=== PATIENT | male | born 1975 | race Caucasian/White ===

== ENCOUNTER → 2023-07-11 12:42 | Outpatient (REF) | payer OTHER, SELFPAY | LOC: HWRCS 12:42 | PROVIDERS: ATTENDING PHYSICIAN Internal Medicine Rheumatology; FAMILY PHYSICIAN Family Medicine | DX: Z86.79 Personal history of other diseases of the circulatory system (principal) | CPT/HCPCS: 93306 ==

== ENCOUNTER 2024-09-16 23:35 | Inpatient (IN) | payer OTHER, SELFPAY ==
[2024-09-16] VITALS (8 sets, daily range): BP systolic 142–180; BP diastolic 86–148
--- NOTE | 2024-09-16 21:20 | ED.GENMED ---
History of Present Illness
<Blanca Arredondo DO, Resident - Last Filed: 09/17/24 00:18>
General
Chief Complaint: Breathing Problem
Source: patient
Time Seen by Provider: 09/16/24 21:03
Nursing documentation reviewed up to this point in time: agreed with
History of Present Illness
History of Present Illness:
Patient is a 48-year-old man with past medical history of eosinophilic granulomatosis, asthma presenting with new onset shortness of breath and wheezing. Patient has followed with rheumatology at [place] with Dr. Sola Riddle for 10+ years for
diagnosis of Churg Oscar. Patient has been on Nucala with good response. Patient has noticed that over the last 3 months he has had to use his inhaler more frequently. Patient woke up yesterday with a sore throat, new chest tightness, and noted
that it was harder to get a good breath. Patient also notes that he is wheezing. His inhaler is not providing symptom relief. Patient presented to the ED today at the encouragement of family.
Past History
<Blanca Arredondo DO, Resident - Last Filed: 09/17/24 00:18>
Past History
ED Past Medical History: Asthma and Other (previous pericarditis and asthma)
ED Past Surgical History: None
Social History
Tobacco: Non-smoker
Alcohol: Occasional
Personal:
Living: with family
Family History
Family History: Other (Father with prostate cancer)
Review of Systems
<Blanca Arredondo DO, Resident - Last Filed: 09/17/24 00:18>
Review of Systems
Allergies reviewed?: Yes
All Other Systems: ROS reviewed and negative except as documented in HPI and ROS
Constitutional: Reports no symptoms
EENT: Reports no symptoms
Respiratory: Reports trouble breathing
Cardiac: Reports no symptoms
ABD/GI: Reports no symptoms
: Reports no symptoms
Musculoskeletal: Reports no symptoms
Skin: Reports no symptoms
Neurological: Reports no symptoms
Endocrine: Reports no symptoms
Hematologic/Lymphatic: Reports no symptoms
Psychiatric: Reports no symptoms
Phy Exam
<Blanca Arredondo DO, Resident - Last Filed: 09/17/24 00:18>
General Physical Exam
General Presentation: moderate distress
General age: appears stated age
General Skin: warm
General Habitus: normal
General Mental: alert
Cardiovascular Exam
Cardiovascular Exam: tachycardia
Heart Sounds: normal
Pulmonary Exam
Pulmonary Exam: respiratory distress
Oxygen Status: oxygen 2 liters via NC
Breath Sounds: Wheeze: right upper and right lower
Gastrointestinal Exam
Gastrointestinal Exam: normal bowel sounds, non tender and soft
Neurological Exam
Neurological Exam: alert and oriented x3
Scores
<River Louis MD - Last Filed: 09/17/24 15:12>
Heart Failure Risk
Heart Failure Risk Score: Not Applicable
Course
<Blanca Arredondo DO, Resident - Last Filed: 09/17/24 00:18>
Orders/Labs/Results
Orders:
Orders
09/16/24 20:49
EKG [Electrocardiogram (*1)] Urgent
Reason for Study: Shortness of Breath
EKG- Treatment ONCE
09/16/24 21:18
Dexamethasone Sod Phosphate [Decadron] 10 mg IV NOW STA
Ipratropium/Albuterol Sulfate [Duoneb] 3 ml INH R NOW STA
CR Chest Portable - 1 View Urgent
Comment:
Reason For Exam: cough/sob
Reason Study Needs to be Portable: Patient Unstable
09/16/24 21:23
Complete Blood Count/With Diff Urgent
Comprehensive Metabolic Panel Urgent
Magnesium Urgent
09/16/24 21:50
Ipratropium/Albuterol Sulfate [Duoneb] 3 ml INH R NOW STA
09/16/24 21:51
0.9% Sodium Chloride 500 ml [Nss] 500 ml IV BOLUS
09/16/24 23:03
D-Dimer Stat
Influenza A+B Rapid Molecular Urgent
LATA Source: Nasal Swab
Specimen Description:
09/16/24 23:05
Admit/Transfer Patient As Directed
Co-Sign Provider:
Level of Care: Inpatient admission
Assign to:: Telemetry
Physician / Group: Eloisa Molina
Diagnosis: asthma exacerbaton
Reason for Telemetry: Arrhythmia
Date to Stop Telemetry: 09/19/24
Time to Stop Telemetry: 11:00
Reason for Hospitalization: asthma exacerbation
Expected length of stay greater than two midnights?: Yes
ELOS- Estimated Length of Stay in days: 3
I certify the patient meets the requirements for IP care: Yes
PRN Pain Medication Management As Directed
May give lesser potent ordered pain med per pt: Yes
preference::
Protocol:: Medication orders for pain may be administered in a
manner that supports deferring to patient preference
when the pt is:
- Requesting an ordered lesser potent pain medication.
Least to most potent pain medications are defined
as: acetaminophen < NSAID < tramadol < opioids
(morphine, oxycodone, hydromorphone).
- Requesting a lesser dose of the same medication IF
ORDERED.
- Requesting a less intrusive route of administration
if both routes are prescribed by the provider (PO <
IV).
09/16/24 23:06
Code Status As Directed
Resuscitation Status: Full Code
COVID-19 Antigen Routine
09/17/24 01:28
Acetaminophen [Tylenol] 650 mg PO Q4HPRN PRN
Ipratropium/Albuterol Sulfate [Duoneb] 3 ml INH R Q4HPRN PRN
09/17/24 01:28
Consult Notification Routine
Specialty to Notify: Pulmonary
Date consulting provider notified: 09/17/24
Time consulting provider notified: 07:35
Notified:: Provider
Comment: MORRIS CHONG
PULMONARY CONSULT Routine
Consulting Provider: Morris Chong
Was physician already notified: No
Reason for consult: asthma exacerbaton
Activity As Directed
Activity Level: As Tolerated
Vital Signs As Directed
Frequency: Per unit guidelines
Weight As Directed
Frequency: Once
Comment: on admission
O2 Therapy [RESP] Routine
Titrate/Wean O2 to maintain O2 sat greater than (%): 93
Pulse Ox/spot Check [RESP] Routine
Quantity: 1
DX Deep Vein Thrombosis Video Routine
09/17/24 06:00
Dexamethasone Sod Phosphate [Decadron] 4 mg IV Q8H
09/17/24 07:00
Basic Metabolic Panel IN AM
09/17/24 08:00
Ipratropium/Albuterol Sulfate [Duoneb] 3 ml INH R QID
09/17/24 Dinner
Regular
At Your Request: Full Participation
09/17/24 18:00
Enoxaparin Sodium [Lovenox] 40 mg SC QPM
09/19/24 11:00
DC Protocol for Telemetry ONCE
Abnormal Lab Results
09/16/24 09/16/24
21:23 23:03
MCH 31.6 H pg
(27.0-31.0)
Absolute Lymphs (auto) 0.9 L 10^3/uL
(1.2-3.4)
Absolute Monos (auto) 0.8 H 10^3/uL
(0.1-0.6)
Neutrophils % 78.2 H %
(42.2-75.2)
Lymphocytes % 10.6 L %
(20.5-51.1)
Monocytes % 9.7 H %
(1.7-9.3)
D-Dimer 0.57 H ug/mlFEU
(0.00-0.50)
Glucose 112 H mg/dl
(70-99)
Albumin 5.2 H g/dl
(3.5-5.0)
09/16/24 21:23
09/16/24 21:23
Vital Signs
Initial and Last Documented VS:
Initial Vital Signs
Temp Pulse BP Pulse Ox
98.2 F 134 180/148 92
09/16/24 20:49 09/16/24 20:49 09/16/24 20:49 09/16/24 20:49
Last Documented Vital Signs
Temp Pulse Resp BP Pulse Ox
98.1 F 105 25 160/94 94
09/17/24 11:10 09/17/24 12:23 09/17/24 12:23 09/17/24 11:10 09/17/24 12:23
<River Louis MD - Last Filed: 09/17/24 15:12>
Orders/Labs/Results
Orders:
Orders
09/16/24 20:49
EKG [Electrocardiogram (*1)] Urgent
Reason for Study: Shortness of Breath
EKG- Treatment ONCE
09/16/24 21:18
Dexamethasone Sod Phosphate [Decadron] 10 mg IV NOW STA
Ipratropium/Albuterol Sulfate [Duoneb] 3 ml INH R NOW STA
CR Chest Portable - 1 View Urgent
Comment:
Reason For Exam: cough/sob
Reason Study Needs to be Portable: Patient Unstable
09/16/24 21:23
Complete Blood Count/With Diff Urgent
Comprehensive Metabolic Panel Urgent
Magnesium Urgent
09/16/24 21:50
Ipratropium/Albuterol Sulfate [Duoneb] 3 ml INH R NOW STA
09/16/24 21:51
0.9% Sodium Chloride 500 ml [Nss] 500 ml IV BOLUS
09/16/24 23:03
D-Dimer Stat
Influenza A+B Rapid Molecular Urgent
LATA Source: Nasal Swab
Specimen Description:
09/16/24 23:05
Admit/Transfer Patient As Directed
Co-Sign Provider:
Level of Care: Inpatient admission
Assign to:: Telemetry
Physician / Group: Eloisa Molina
Diagnosis: asthma exacerbaton
Reason for Telemetry: Arrhythmia
Date to Stop Telemetry: 09/19/24
Time to Stop Telemetry: 11:00
Reason for Hospitalization: asthma exacerbation
Expected length of stay greater than two midnights?: Yes
ELOS- Estimated Length of Stay in days: 3
I certify the patient meets the requirements for IP care: Yes
PRN Pain Medication Management As Directed
May give lesser potent ordered pain med per pt: Yes
preference::
Protocol:: Medication orders for pain may be administered in a
manner that supports deferring to patient preference
when the pt is:
- Requesting an ordered lesser potent pain medication.
Least to most potent pain medications are defined
as: acetaminophen < NSAID < tramadol < opioids
(morphine, oxycodone, hydromorphone).
- Requesting a lesser dose of the same medication IF
ORDERED.
- Requesting a less intrusive route of administration
if both routes are prescribed by the provider (PO <
IV).
09/16/24 23:06
Code Status As Directed
Resuscitation Status: Full Code
COVID-19 Antigen Routine
09/17/24 01:28
Acetaminophen [Tylenol] 650 mg PO Q4HPRN PRN
Ipratropium/Albuterol Sulfate [Duoneb] 3 ml INH R Q4HPRN PRN
09/17/24 01:28
Consult Notification Routine
Specialty to Notify: Pulmonary
Date consulting provider notified: 09/17/24
Time consulting provider notified: 07:35
Notified:: Provider
Comment: MORRIS CHONG
PULMONARY CONSULT Routine
Consulting Provider: Morris Chong
Was physician already notified: No
Reason for consult: asthma exacerbaton
Activity As Directed
Activity Level: As Tolerated
Vital Signs As Directed
Frequency: Per unit guidelines
Weight As Directed
Frequency: Once
Comment: on admission
O2 Therapy [RESP] Routine
Titrate/Wean O2 to maintain O2 sat greater than (%): 93
Pulse Ox/spot Check [RESP] Routine
Quantity: 1
DX Deep Vein Thrombosis Video Routine
09/17/24 06:00
Dexamethasone Sod Phosphate [Decadron] 4 mg IV Q8H
09/17/24 07:00
Basic Metabolic Panel IN AM
09/17/24 08:00
Ipratropium/Albuterol Sulfate [Duoneb] 3 ml INH R QID
09/17/24 Dinner
Regular
At Your Request: Full Participation
09/17/24 18:00
Enoxaparin Sodium [Lovenox] 40 mg SC QPM
09/19/24 11:00
DC Protocol for Telemetry ONCE
Abnormal Lab Results
09/16/24 09/16/24
21:23 23:03
MCH 31.6 H pg
(27.0-31.0)
Absolute Lymphs (auto) 0.9 L 10^3/uL
(1.2-3.4)
Absolute Monos (auto) 0.8 H 10^3/uL
(0.1-0.6)
Neutrophils % 78.2 H %
(42.2-75.2)
Lymphocytes % 10.6 L %
(20.5-51.1)
Monocytes % 9.7 H %
(1.7-9.3)
D-Dimer 0.57 H ug/mlFEU
(0.00-0.50)
Glucose 112 H mg/dl
(70-99)
Albumin 5.2 H g/dl
(3.5-5.0)
09/16/24 21:23
09/16/24 21:23
Vital Signs
Initial and Last Documented VS:
Initial Vital Signs
Temp Pulse BP Pulse Ox
98.2 F 134 180/148 92
09/16/24 20:49 09/16/24 20:49 09/16/24 20:49 09/16/24 20:49
Last Documented Vital Signs
Temp Pulse Resp BP Pulse Ox
98.1 F 105 25 160/94 94
09/17/24 11:10 09/17/24 12:23 09/17/24 12:23 09/17/24 11:10 09/17/24 12:23
<Blanca Arredondo DO, Resident - Last Filed: 09/17/24 00:18>
MDM/Problems Addressed
Differential Diagnosis Includes:
Acute asthma exacerbation, viral respiratory infection
MDM/Problems Addressed:
Chest x-ray given unilateral wheezing, dexamethasone and breathing treatment ordered. Given that patient is hypoxic, tachycardic patient will be admitted tonight.
Chest x-ray shows no acute cardiopulmonary abnormality. Patient's vital signs improving on dexamethasone and breathing treatments however patient is still hypoxic and tachycardic. Will admit patient.
<Blanca Arredondo DO, Resident - Last Filed: 09/17/24 00:18>
*Pulse Oximetry
SaO2: 92
Oxygen Mode of Delivery: Room air
Patient hypoxic: yes
Comment: Patient is hypoxic on presentation, patient on 1.5 L nasal cannula
*Critical Care Note
Total Time (30-74mins, 75-104mins- exclusive of procedures): Not Applicable
ED Attending Note
<Blanca Arredondo DO, Resident - Last Filed: 09/17/24 00:18>
-
Portions of this chart may have been created with voice recognition software.� Occasional wrong word or��sound alike� substitutions may have occurred due to the inherent limitations of voice recognition software.
<River Louis MD - Last Filed: 09/17/24 15:12>
ED Attending Note
Patient seen and examined by attending physician: Yes
ED Attending Note:
Patient with history of asthma, presents to ED secondary to worsening cough, sore throat, nasal congestion, and worsening shortness of breath despite using inhaler over the past 2 days. Denies fever or chills. Denies chest pain. Denies back pain.
Denies leg pain or swelling. Denies recent travel. Patient has had similar symptoms in the past, but not recently. Denies sick contact. Denies recent change in medications or diet. Patient was evaluated urgent care center this afternoon, where
he tested negative for COVID-19 along with negative rapid strep test. Denies loss of appetite. Denies vomiting or diarrhea. Denies headache. Denies neck pain.
Physical Exam
General: moderate respiratory distress, not acutely ill. afebrile
Head: nc/at. eomi
Neck: supple. no jvd. normal range of motion.
Heart: tachycardic without murmur
Lungs: moderate respiratory distress. expiratory wheezing noted, R>L
Abdomen: normal bowel sounds. not tender.
Neuro: alert and oriented x 3. no focal neurological deficits
Skin: no rash
Psychiatric: well kept. interactive and cooperative
Extremities: no edema. no calf tenderness.
Patient reports improvement after treatment, with improved blood pressure and heart rate. Chest x-ray without any acute findings. History and exam concerning for hypoxia, likely secondary to asthma exacerbation, due to nonspecific viral illness.
Doubtful for PE diagnosis at this time. However, to be considered during hospitalization, especially if symptoms do not improve appropriately.
Discharge Plan
Departure
Patient Disposition: Admit
Date of Disposition: 09/16/24
Time of Disposition: 22:12
Presentation/result/management discussed w/ accepting MD/DO: Hospitalist
Discharge Problem:
Asthma
Interventions
Interventions:
*Risk Screen - Suicide Last Done: 09/16/24 20:49
*General Assessment Last Done: 09/16/24 20:49
*Neglect/Abuse Screening Last Done: 09/16/24 20:49
*ED COVID-19 Vaccine History Last Done: 09/17/24 01:27
*Nursing Disposition Last Done: 09/17/24 01:36
ED- Cardiac Assessment Last Done: 09/16/24 21:30
ED- Pulmonary Assessment Last Done: 09/16/24 21:30
Discharge Date and Time
Discharge Date/Time: 09/17/24 01:36
[2024-09-16] MEDS: DUONEB 3 ML INH ×2 (21:25→22:01)
[2024-09-16] MEDS: DECADRON 10 MG IV (21:26)
[2024-09-16 21:32] LABS: Hematocrit 46.6 % (39.0-52.0); Hemoglobin 16.7 g/dL (13.0-18.0); Mean Corp Hgb Conc. 35.8 g/dL (33.0-37.0); Mean Corpuscular Volume 88.3 fL (80.0-94.0); Platelet Count 191 10^3/uL (130-400); Red Cell Dist. Width 12.3 % (11.5-14.5)
[2024-09-16 21:44] LABS: ALT (SGPT) 42 U/L (0-50); AST (SGOT) 29 U/L (17-59); Albumin 5.2 g/dl (3.5-5.0); Alkaline Phosphatase 83 U/L (38-126); Blood Urea Nitrogen 18 mg/dl (9-20); Calcium 9.8 mg/dl (8.4-10.2); Carbon Dioxide 26 mmol/L (22-30); Chloride 105 mmol/L (98-107); Glucose 112 mg/dl (70-99); Magnesium 2.0 mg/dl (1.6-2.3); Potassium 3.7 mmol/L (3.5-5.1); Sodium 140 mmol/L (135-145); Total Protein 7.8 g/dl (6.3-8.2); eGFR > 60.00
[2024-09-16] MEDS: NSS 500 IV (22:01)
--- NOTE | 2024-09-16 22:38 | HPS.HSE ---
Addendum entered and electronically signed by Eloisa Molina MD 09/16/24 23:12:
I saw and examined the patient.
The MANUFACTURING QUALITY ENGINEER or PA's note was reviewed and I agree with the note.
Comment: see my notes for changes
48-year-old with difficulty breathing. Patient swallowed rheumatology and pain for dextrose. On Nucala. He has been using his inhaler more frequently for the past 3 months. Yesterday woke up with sore throat chest tightness and difficulty
breathing. Patient stated that she followed up with [facility] about 2 and half months ago. At that time he informed her that he has been using his inhaler more but the plan was to keep an eye and let her know if this keeps going
on. His last dose of Nucala was September 06. Mild chest tightness which he attributes to more of coughing and muscular pain
Chest x-ray reviewed by me-no acute cardiopulmonary changes
EKG-sinus tachycardia with a rate of 120. Possible left atrial enlargement
Nasal congestion
Cardiovascular system S1-S2 tachycardic
Chest decreased breath sounds no wheezing or rhonchi
No pedal edema no calf tenderness no erythema
No rashes on the skin
# Acute hypoxic respiratory insufficiency.
Acute asthma exacerbation possible
Also has
Patient has been using his inhaler more frequently lately and has been off-and-on short of breath for the past 2 months
On 2 L of O2
[id number]
Check D-dimer
He has a contrast allergy if D-dimer is positive we can treat him with Lovenox tonight and get a VQ scan in the morning.
Discussed with the patient regarding this. No bleeding history
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
IV steroids, nebulizer treatments
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 Follows with Dr.Rennie Riddle . Differential count in morning to check eosinophils.
# History of pericarditis
# Ex-smoker
# DVT prophylaxis-Lovenox
# Full code
Part of this note was created using voice recognition system. Occasional wrong word or��sound alike� substitutions may have inadvertently occurred due to the inherent limitations of voice recognition software. If noted kindly bring it to my
attention for correction.
Original Note:
Family Physician
-
Family Physician: Rajan Garcia
Chief Complaint
-
shortness of breath and wheezing
History of Present Illness
Patient is a 48-year-old male with past medical history significant for asthma who presented to [facility] ED for evaluation of shortness of breath and wheezing. Patient has followed with rheumatology at [place] with Dr. Sola Riddle for 10+ years for
diagnosis of Churg Oscar. Patient has been on Nucala with good response. Patient reports waking yesterday morning with nasal congestion and sore throat. He reports assocaited shortness of breath that has increasingly gotten worse over the past 2
days. Earlier today he was seen in urgent care where he was tested for Covid and Strep and both were negative. He went home and family encouraged him to go to ED for evaluation for increased shortness of breath and wheezing. Patient denies any
fever, chills, chest pain, nausea, vomiting, constipation, diarrhea or urinary symptoms.
Medical History
Past Medical History
Past Medical History: Reports Other
Additional Past Medical History:
Asthma
Eosinophilia
History of pericarditis ,With effusion
Churge Oscar Syndrome
Past Surgical History: Reports None
Social History
Tobacco: Former Smoker (quit 20 years ago )
Alcohol: Occasional (couple times weekly )
Drug: None
Personal:
Living: With Family
Employment: Employed
Family History
Family History: Other (Father: prostate cancer; Mother: Skin cancer )
Allergies / Home Medications
Allergies reflects when Allergies were last updated in [email or web address].
Home Medications with original date entered in [email or web address]
Allergy/Medication List:
Allergies
Allergy/AdvReac Type Severity Reaction Status Date / Time
erythromycin base Allergy NAUSEA/VOMI Verified 06/18/19 15:20
TING
Iodinated Contrast Media Allergy DIFFICULTY Verified 06/18/19 15:20
(Iodinated Contrast- Oral BREATHING,
and IV Dye) HIVES
Home Medications
mepolizumab 100 mg subcutaneous solution (Nucala) 300 mg SC .[id number] 07/18/17
albuterol 90 mcg/actuation aerosol inhaler 180 mcg inhalation Q4HPRN PRN shortness of breath 09/16/24
Review of Systems
-
History Source: Patient
Constitutional: Reports No Symptoms
EENT: Reports No Symptoms
Respiratory: Reports Cough and Trouble Breathing (shortness of breath )
Cardiac: Reports No Symptoms
Abdomen/GI: Reports No Symptoms
: Reports No Symptoms
Musculoskeletal: Reports No Symptoms
Skin: Reports No Symptoms
Neurological: Reports No Symptoms
Endocrine: Reports No Symptoms
Hematologic/Lymphatic: Reports No Symptoms
Psych: Reports No Symptoms
Physical Exam
Vital Signs
Vital Signs
Temp Pulse Resp BP Pulse Ox
98.2 F 107 15 147/89 92
09/16/24 20:49 09/16/24 22:00 09/16/24 22:00 09/16/24 22:00 09/16/24 22:00
Physical Exam
General: Well Developed, Well Nourished and No Apparent Distress
HEENT: NormoCephalic, Moist mucous membranes and Atraumatic
Respiratory: Clear and Other (mild shortness of breath, 2L NC in place for mild hypoxia on room air )
Cardiac: S1/S2, Regular Rhythm and Tachycardia
GI: Soft, Non Tender, Non Distended and Normal Bowel Sounds; No Organomegaly
Rectal: Deferred by Provider
Musculoskeletal: No Clubbing, No Cyanosis and No Edema
Skin: Warm and IV/Catheter Site
Neuro: Awake, AO x 3 and Nonfocal/grossly intact
Psych: Calm and Intact Judgment/Insight
Laboratory Results
-
09/16/24 21:23
09/16/24 21:23
Laboratory Results
Total Bilirubin 1.1 mg/dl (0.2-1.3) 09/16/24 21:23
AST 29 U/L (17-59) 09/16/24 21:23
ALT 42 U/L (0-50) 09/16/24 21:23
Alkaline Phosphatase 83 U/L (38-126) 09/16/24 21:23
Data Reviewed
-
Diagnostic Radiology: Report Reviewed by me (CXR: No acute cardiopulmonary abnormality.)
Lab Data: Labs Reviewed by me
Impression/Plan
-
IMPRESSION/PLAN:
#asthma exacerbation
CXR: No acute cardiopulmonary abnormality.
- Admit to telemetry
- Consult pulmonary
- DuoNeb QID
- IV dexamethasone
- check d-dimer
#Arvind Moore
follows at [place] with Dr. Dot Riddle
- continue to follow up out patient
- continue Nucala out patient
Code status: full code
DVT prophylaxis: Lovenox sq
[2024-09-16 23:30] LABS: COVID-19 Antigen Negative (Negative)
[2024-09-16 23:48] LABS: D-Dimer 0.57 ug/mlFEU (0.00-0.50)
[2024-09-17] VITALS (11 sets, daily range): BP systolic 131–162; BP diastolic 78–108; BMI 29.3
[2024-09-17] MEDS: LOVENOX 90 MG SC (00:28)
[2024-09-17] MEDS: DUONEB 3 ML INH ×6 (02:03→23:53)
--- NOTE | 2024-09-17 02:48 | TRANSFER ---
Pt admitted from ED. Ambulated to bed. Pt on 2L of O2. Oriented to room, call avelar within reach, plan of care ongoing.
[2024-09-17] MEDS: DECADRON 4 MG IV ×3 (06:53→22:19)
[2024-09-17 08:07] LABS: Blood Urea Nitrogen 12 mg/dl (9-20); Calcium 9.3 mg/dl (8.4-10.2); Carbon Dioxide 22 mmol/L (22-30); Chloride 106 mmol/L (98-107); Estimated Creatinine Clearance > 125 ml/min; Glucose 153 mg/dl (70-99); Potassium 4.5 mmol/L (3.5-5.1); Sodium 139 mmol/L (135-145); eGFR > 60.00
--- NOTE | 2024-09-17 08:22 | CON.PUL ---
Consultation
Consultation Request
Date/Time Consultation Requested: 09/17/2024-8 AM
Date/Time Consultation Performed: 09/17/2024-9 AM
Requesting Provider: Hospitalist
Performing Provider: Dr. Lyon
Reason for Consultation: Shortness of breath
Medical History
-
Chief Complaint: Shortness of breath
History of Present Illness:
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 Patton last over 3 years ago presented with mild chest tightness with
coughing and chest congestion-pulmonary consulted for shortness of breath/asthma and Churg-Oscar 09/17/2024. Patient feels improved today. Less shortness of breath. He still has some chest congestion and some chest tightness. He has occasional
wheezing. He states that his asthma is been well-controlled since he has been on Nucala. He has not followed up with pulmonary as he has been well-controlled rarely taking albuterol. He has been on Nucala which has helped him immensely. He is
followed by [facility]ology at [facility]. He offers no complaints of current chest pain, pleurisy, productive cough, abdominal pain, nausea, focal weakness or leg swelling.
Past Medical History
Past Medical History: None (Yanni followed by rheumatology at [facility]-Dr. Riddle-maintained on Nucala. Asthma. Eosinophilia. History of pericarditis.)
Social History
Tobacco: Former Smoker (Less than 20-grzg-zoha quit 20 years ago.)
Alcohol: Occasional
Drug: None
Personal:
Living: With Family
Occupational Exposures: No known asbestos exposure
Environmental Exposures: no known tuberculosis exposure
Family History
Family History: Reviewed & Not Pertinent (Father-prostate cancer. Mother skin cancer.)
Allergies / Home Medications
Allergies
Allergy/AdvReac Type Severity Reaction Status Date / Time
erythromycin base Allergy NAUSEA/VOMI Verified 06/18/19 15:20
TING
Iodinated Contrast Media Allergy DIFFICULTY Verified 06/18/19 15:20
(Iodinated Contrast- Oral BREATHING,
and IV Dye) HIVES
Home Medications
�Medication �Instructions �Recorded �Confirmed �Last Taken �Type
mepolizumab 100 mg subcutaneous 300 mg SC [id number] 07/18/17 09/16/24 06/18/19 History
solution (Nucala)
albuterol 90 mcg/actuation aerosol 180 mcg inhalation Q4HPRN PRN 09/16/24 09/16/24 09/16/24 History
inhaler shortness of breath
Review of Systems
-
Unable to Obtain full review of systems at this time due to: Other (Per HPI)
Vitals / Labs / Diagnostic Testing
Vital Signs
Temp Pulse Resp BP Pulse Ox
97.8 F 101 18 160/89 95
09/17/24 03:58 09/17/24 07:22 09/17/24 07:22 09/17/24 03:58 09/17/24 07:22
Lab Data
09/17/24 07:00
Microbiology
09/16/24 23:03 Nasal Swab Influenza Types A & B (GILMER) - Final
Negative for Influenza A & B, NAAT
Negative results must be combined with clinical observations
and patient history.
Nucleic Acid Amplification test (NAAT)performed on the
[employer] platform.
Diagnostic Testing:
Physical Exam
-
Exam:
Well-nourished and well-developed in no apparent distress
HEENT-atraumatic, normocephalic
Neck-supple, no JVD, no bruit
Heart-regular rate and rhythm-no murmurs, rubs or gallops
Chest with diminished breath sounds, mildly prolonged expiratory time, forced wheezing no crackles
Back-no tenderness
Abdomen-soft, nontender, nondistended, no hepatosplenomegaly
Extremities-no cyanosis, clubbing, edema and good peripheral pulses
Integument-intact, no rashes, lesions or ecchymosis
Neurology-alert and oriented, nonfocal motor and sensory exam
Assessment
-
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 Patton last over 3 years ago presented with mild chest tightness with
coughing and chest congestion-pulmonary consulted for shortness of breath/asthma and Churg-Oscar 09/17/2024.
Asthma with acute exacerbation
Bronchitis
Bdmll-Ccruftm-pqpfezxvve by Nucala
Mild hyperglycemia
Conditions present prior to admission:
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 Riddle-maintained on Nucala.
Asthma.
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
History of pericarditis.
Plan
Respiratory decompensation likely related to postnasal drip/sinus issues exacerbating underlying asthma/pzraspvqlq-Aslbd-Nzofkld well-controlled by Nucala in the outpatient setting
Supplemental oxygen as needed
Aspiration precautions
Nebulizers
Decadron with eventual change to prednisone slow taper
Continue Nucala-receives as an outpatient
Mucolytic's
Treat postnasal drip
Consider CT sinus
Consider outpatient ENT evaluation if sinusitis and nasal congestion does not improve
Check sputum culture
Consider empiric antibiotics
Monitor blood sugar
Insulin supplementation as needed
DVT prophylaxis-on Lovenox
Nutrition
Early mobilization
Reviewed with at the bedside
Outpatient rheumatology follow-up with Dr. Riddle at [facility]
Follow-up with Dr. Patton for asthma locally-last seen July 2017
Diagnostic data:
Chest x-ray 12/08/2014-moderate cardiomegaly without associated pulmonary edema
Chest x-ray 09/16/2024-NAD
CT chest 04/11/2013-small mediastinal and right hilar lymph node
CT chest abdomen and pelvis 12/11/2014-mildly complex pericardial effusion, mild mediastinal and bilateral hilar lymphadenopathy
Echocardiogram 07/11/2023-EF 65-70%, normal diastolic function
[2024-09-17 08:25] LABS: Nucleated Red Blood Cells % 0 % (-)
[2024-09-17 08:41] LABS: Hematocrit 46.3 % (39.0-52.0); Hemoglobin 16.2 g/dL (13.0-18.0); Mean Corp Hgb Conc. 35.0 g/dL (33.0-37.0); Mean Corpuscular Volume 88.9 fL (80.0-94.0); Nucleated Red Blood Cells % 0 % (-); Platelet Count 185 10^3/uL (130-400); Red Cell Dist. Width 12.4 % (11.5-14.5)
[2024-09-17] MEDS: DUONEB INH (11:30)
--- NOTE | 2024-09-17 12:05 | CM ---
Patient unavailable - Lung scan
IA completed from at bedside
Dx: asthma exacerbation
PMH: Former smoker, followed by rheumatology for Churg-Oscar on Nucala, asthma
Lives with in a 2 story home with 2 [address], flight stairs to bedroom/bathroom, powder room 1st floor
PLOF: Independent
DME: Pulse oximetry, b/p cuff
Denies VN/Rehab
PCP: Rajan Garcia, [facility] (saw associate in practice)
[facility]
PLAN: Home, no needs anticipated currently, watch for 02 needs/nebulizer
[2024-09-17] MEDS: MUCINEX 1200 MG PO (12:18)
[2024-09-17] MEDS: OCEAN, SALINE MIST 2 SPRAYS NASAL ×3 (12:18→22:19)
--- NOTE | 2024-09-17 16:13 | W.PN.HOSP.TC ---
Today's Communication/Plan
-
See plan
Assessment / Plan
Assessment / Plan
Impression:
Acute hypoxic respiratory insufficiency.
Asthma exacerbation
Acute bronchitis.
Conditions prior to admission
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 Riddle. Maintained on Nucala.
History of pericarditis with a significantly leading to diagnosis of Churg-Oscar syndrome in 2015.
Plan:
Presents with gradually increasing shortness of breath, dry nonproductive cough, chest tightness and congestion.
Exam with persistent bilateral expiratory wheezing and rhonchi.
Acute hypoxic respiratory insufficiency with increased work of breathing saturating at 92% on 2 to 3 L of nasal cannula oxygen without evidence of distress.
Afebrile.
Normal white count without eosinophilia.
Chest x-ray with hyperinflation, although no visible infiltrates.
Noted with persistent tachycardia
D-dimer marginal at 0.57.
Attempt to do VQ scan reported with low ventilation on the left, although clinically patient has a good breath sounds with no infiltrates.
Given persistent tachycardia, marginal elevated D-dimer, relatively high risk for thromboembolic disease we will go with CT chest PE protocol pretreating with corticosteroids and H2 blockers according to protocol for iodine allergy
Check echocardiogram
Check lower extremity Doppler
Initiated on systemic corticosteroids
Continue mucolytics
Add Zithromax
Continue Lovenox at prophylactic dose
Discussed with pulmonary services
Anticipated Discharge: 24 - 48 hours
Subjective/Interval History
-
Date of Service: September 17, 2024
Objective Data
-
Labs:
Laboratory Results
09/16/24 09/17/24
21:23 07:00
WBC 8.4 6.9
Hgb 16.7 16.2
Hct 46.6 46.3
Plt Count 191 185
Sodium 139
Potassium 4.5
Chloride 106
Carbon Dioxide 22
BUN 12
Creatinine 0.6 L
Glucose 153 H
Calcium 9.3
Vital Signs:
Vital Signs
Temp Pulse Resp BP Pulse Ox
97.6 F 97 20 132/91 92
09/17/24 15:20 09/17/24 15:53 09/17/24 15:53 09/17/24 15:20 09/17/24 15:53
I&O
09/16/24 09/17/24 09/18/24
06:59 06:59 06:59
Intake Total 120 / 120
Balance 120 / 120
Physical Exam
-
General: Well Developed and No Apparent Distress
HEENT: Normocephalic, Atraumatic and Moist Mucous Membranes
Respiratory: Wheezes
Cardiac: Regular Rhythm and S1/S2; Negative Murmur, Rub or Gallop
GI: Soft, Nontender, Nondistended and Normal Bowel Sounds; Negative Organomegaly
Rectal: Deferred by Provider
Musculoskeletal: No Clubbing, No Cyanosis and No Edema
Skin: Negative Rash
Neuro: Nonfocal/Grossly Intact
--- NOTE | 2024-09-17 16:38 | PTCARENOTE ---
Pt resting HR in the 100's steady throughout the day, with no complaints. MD made aware via TT, no new orders. Plan of care ongoing.
[2024-09-17] MEDS: ZITHROMAX 500 MG PO (17:19)
[2024-09-17] MEDS: LOVENOX 40 MG SC (17:20)
[2024-09-17] MEDS: PULMICORT 0.5 MG INH (19:23)
[2024-09-17] MEDS: SOLU-CORTEF 200 MG IV (20:11)
[2024-09-18] MEDS: SOLU-CORTEF 200 MG IV ×2 (02:17→08:35)
[2024-09-18 03:02] VITALS: BP 133/78
[2024-09-18] MEDS: DECADRON 4 MG IV ×2 (06:31→15:16)
[2024-09-18] MEDS: DUONEB 3 ML INH ×3 (07:19→15:30)
[2024-09-18] MEDS: PULMICORT 0.5 MG INH (07:19)
[2024-09-18 07:25] VITALS: BP 131/80
[2024-09-18] MEDS: ZITHROMAX 500 MG PO (08:33)
[2024-09-18] MEDS: BENADRYL 50 MG IV (08:33)
[2024-09-18] MEDS: OCEAN, SALINE MIST 2 SPRAYS NASAL ×2 (08:38→15:14)
--- NOTE | 2024-09-18 10:17 | W.PN.PUL.V3 ---
Today's Communication / Plan
-
Wean oxygen
Increase activity
CT chest pending
Assessment
-
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 Patton last over 3 years ago presented with mild chest tightness with
coughing and chest congestion-pulmonary consulted for shortness of breath/asthma and Churg-Oscar 09/17/2024.
Asthma with acute exacerbation
Bronchitis
Hkwes-Ggrqjlw-eflkbbtiuq by Nucala
Mild hyperglycemia
Mildly elevated D-dimer
Conditions present prior to admission:
Churg-Oscar followed by rheumatology at [place]-Dr. Riddle-maintained on Nucala.
Asthma.
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
History of pericarditis.
Plan
Respiratory decompensation likely related to postnasal drip/sinus issues exacerbating underlying asthma/ecojgnipmk-Fovco-Pgvxdjt well-controlled by Nucala in the outpatient setting
Supplemental oxygen as needed-now on room air
Aspiration precautions
Nebulizers-DuoNebs and budesonide nebulizers
Decadron with eventual change to prednisone slow taper
Continue Nucala-receives as an outpatient
Mucolytic's
Treat postnasal drip
Consider CT sinus
Consider outpatient ENT evaluation if sinusitis and nasal congestion does not improve
Check sputum culture-unable to produce
Influenza negative-reportedly negative covid at urgent care
No leukocytosis or temperature
Azithromycin continues
Mildly elevated D-dimer
VQ scan with decreased perfusion to isolated lung-chest x-ray with good aeration bilaterally as well as on exam
Lower extremity ultrasound 09/17/2024-no evidence for DVT
CT chest with PE protocol-pretreatment for dye allergy 09/18/2024-pending
Monitor blood sugar
Insulin supplementation as needed
DVT prophylaxis-on Lovenox
Nutrition
Early mobilization
Reviewed with at the bedside
Outpatient rheumatology follow-up with Dr. Riddle at [facility]
Follow-up with Dr. Patton for asthma locally-last seen July 2017
Diagnostic data:
Chest x-ray 12/08/2014-moderate cardiomegaly without associated pulmonary edema
Chest x-ray 09/16/2024-NAD
CT chest 04/11/2013-small mediastinal and right hilar lymph node
CT chest abdomen and pelvis 12/11/2014-mildly complex pericardial effusion, mild mediastinal and bilateral hilar lymphadenopathy
Echocardiogram 07/11/2023-EF 65-70%, normal diastolic function
Subjective Data
-
Date of Service:
Date of Service: September 18, 2024
Chief Complaint: Pulmonary Follow Up and Dyspnea Follow Up
Subjective:
Feels much better, less short of breath, no wheezing, no chest pain, pleurisy, productive cough
Review of Systems
General: Other (Per HPI)
Objective Data
Data Reviewed
Vital Signs / I&O:
Vital Signs
Temp Pulse Resp BP Pulse Ox
97.9 F 86 18 131/80 99
09/18/24 03:02 09/18/24 07:25 09/18/24 07:25 09/18/24 07:25 09/18/24 07:25
Intake and Output
09/17/24 09/18/24 09/19/24
06:59 06:59 06:59
Intake Total 120 / 120 1440 / 1440
Balance 120 / 120 1440 / 1440
SaO2: 99
Nasal Cannula flow liters per minute: 3
Physical Exam
General: Respiratory Distress (n) and Comfortable
HEENT: Normocephalic, Anicteric and Moist Mucous Membranes
Cardiovascular: Regular Rhythm
Respiratory: Wheeze (Few forced end expiratory), Crackles (n), Rhonchi (n), Non-Labored Respirations, Accessory Resp Muscle Use (n) and Stridor
GI: Soft, Non Distended and Non Tender
Neurology: Awake, Alert and No Motor Deficits
Skin: Warm, Good Color, Cyanosis (n), Jaundice (n) and Rash (n)
Labs/Micro/Reports
Lab Data
09/17/24 07:00
09/17/24 07:00
Microbiology
09/16/24 23:03 Nasal Swab Influenza Types A & B (GILMER) - Final
Negative for Influenza A & B, NAAT
Negative results must be combined with clinical observations
and patient history.
Nucleic Acid Amplification test (NAAT)performed on the
[employer] platform.
[2024-09-18 11:10] VITALS: BP 143/83
[2024-09-18] MEDS: DUONEB INH (11:17)
[2024-09-18 12:18] LABS: Glucose - Point of Care 134 mg/dl (70-99)
[2024-09-18 12:46] LABS: Blood Urea Nitrogen 13 mg/dl (9-20); Calcium 9.7 mg/dl (8.4-10.2); Carbon Dioxide 25 mmol/L (22-30); Chloride 104 mmol/L (98-107); Estimated Creatinine Clearance > 125 ml/min; Glucose 141 mg/dl (70-99); Potassium 4.2 mmol/L (3.5-5.1); Sodium 138 mmol/L (135-145); eGFR > 60.00
--- NOTE | 2024-09-18 14:07 | CM ---
Weaned off oxygen Pox 94%.
Pt lives with .
Pulmonary involved.
PLAN Home no needs
[2024-09-18 15:00] VITALS: BP 152/83
== END 2024-09-18 16:57 | disposition home or self-care (01) | DRG 202 ==
LOC: 3 WEST ACU 23:35
PROVIDERS: Nurse Practitioner Family; ADMITTING PHYSICIAN Hospitalist; ATTENDING PHYSICIAN Internal Medicine; EMERGENCY PHYSICIAN Emergency Medicine; FAMILY PHYSICIAN Family Medicine; OTHER PHYSICIAN Internal Medicine Critical Care Medicine
DX: J45.901 Unspecified asthma with (acute) exacerbation (principal); M30.1 Polyarteritis with lung involvement [Churg-Strauss]; R09.02 Hypoxemia; R06.89 Other abnormalities of breathing; D72.10 Eosinophilia, unspecified; R73.9 Hyperglycemia, unspecified; J20.9 Acute bronchitis, unspecified; R09.82 Postnasal drip; Z91.041 Radiographic dye allergy status; Z87.891 Personal history of nicotine dependence; Z88.1 Allergy status to other antibiotic agents; Z80.8 Family history of malignant neoplasm of other organs or systems; Z86.79 Personal history of other diseases of the circulatory system; Z80.42 Family history of malignant neoplasm of prostate; Z11.52 Encounter for screening for COVID-19
CPT/HCPCS: 71045; 71046; 71275; 78579; 80048; 80053; 82962; 83735; 83880; 85025; 85027; 85379; 87502; 87811; 93005; 93306; 93970; 94640; 96374; 99285; A9567; Q9967